=== PATIENT | male | born 1945 | race Caucasian/White ===

== ENCOUNTER 2018-02-12 12:25 | Emergency (ER) | payer MEDICARE, OTHER ==
[~2018-02-12] VITALS: Ht 180.3 cm; Wt 95.7 kg
[~2018-02-12 12:25] MED LIST: ALLOPURINOL300 MG PO; AMIODARONE HCL200 MG; ATORVASTATIN CA10 MG PO; HYDROCHLOROTHIA25 MG; NIASPAN500 MG; WARFARIN SODIUM5 MG
[2018-02-12 13:09] LABS: BASOPHILS % 0.2 % (0.0-1.0); EOSINOPHILS # (AUTO) 0.1 (0.0-0.4); EOSINOPHILS % 1.7 % (0.0-6.0); HEMATOCRIT 43.8 % (38.2-49.6); HEMOGLOBIN 14.8 g/dL (14.0-18.0); LYMPHOCYTES # (AUTO) 0.8 (1.0-3.2); LYMPHOCYTES % 9.6 % (18.0-39.1); MEAN CORPUSCULAR HEMOGLOBIN 32.2 pg (28-32); MEAN CORPUSCULAR HGB CONC 33.8 g/dL (31-35); MEAN CORPUSCULAR VOLUME 95.2 fL (81-99); MONOCYTES % 11.3 % (4.4-11.3); NEUTROPHILS # (AUTO) 6.5 (2.1-6.9); NEUTROPHILS % 76.8 % (38.7-80.0); PLATELET COUNT 116 x10e3/uL (140-360); RED CELL DISTRIBUTION WIDTH 12.5 % (11.7-14.4)
[2018-02-12 13:13] LABS: INR 1.21; PROTHROMBIN TIME 14.4 seconds (11.9-14.5)
[2018-02-12 13:14] LABS: PARTIAL THROMBOPLASTIN TIME 25.6 seconds (23.8-35.5)
[2018-02-12 13:22] LABS: ALANINE AMINOTRANSFERASE 38 IU/L (0-55); ALBUMIN 3.5 g/dL (3.5-5.0); ALBUMIN/GLOBULIN RATIO 1.1 (0.8-2.0); ALKALINE PHOSPHATASE 64 IU/L (40-150); ANION GAP 12.1 mmol/L (8-16); BLOOD UREA NITROGEN 25 mg/dL (7-26); BUN/CREATININE RATIO 23 (6-25); CALCIUM 9.4 mg/dL (8.4-10.2); CARBON DIOXIDE 27 mmol/L (22-29); CHLORIDE 102 mmol/L (98-107); EST GLOMERULAR FILTRATION RATE > 60 ML/MIN (60-); GLUCOSE 100 mg/dL (74-118); LIPASE 47 U/L (8-78); POTASSIUM 4.1 mmol/L (3.5-5.1); SODIUM 137 mmol/L (136-145)
--- NOTE | 2018-02-12 15:31 | Diagnostic Imaging Report ---
Exam: Abdominal film Clinical History: Blood in stool Comparison: None. DISCUSSION: Frontal view of the abdomen shows a nonobstructive bowel gas pattern with mild amount of retained stool.There are no dilated, air-filled loops of bowel. No calcifications project over the genitourinary tract. 2 somewhat cylindrical shaped radiopaque densities measuring approximately 1.5 cm project over the proximal and distal ascending colon. No acute bony abnormalities. Lung bases are clear. IMPRESSION: 1. Nonobstructive bowel gas pattern. 2. 2 somewhat cylindrical shaped radiopaque densities project over the ascending colon, which are indeterminate. These may represent foreign bodies or be external to the patient. The staff physician below has personally reviewed this exam on the date of dictation. Signed by: Dr. Gera Chowdhury M.D. on 02/12/2018 3:28 PM
[2018-02-12 16:07] VITALS: BP 140/85
== END 2018-02-12 16:12 | disposition home or self-care (01) ==
LOC: ER 12:43
DX: K62.5 Hemorrhage of anus and rectum (principal); Z79.01 Long term (current) use of anticoagulants
CPT/HCPCS: 36415; 80053; 83690; 85025; 85610; 85730; 86850; 86900; 99283

== ENCOUNTER → 2018-03-22 | Outpatient (CLI) | payer MEDICARE, OTHER ==
[~2018-03-22] MED LIST changes: +IOPAMIDOL 370 MG/ML 200 ML INFUS..BTL INJ ONE; +SODIUM CHLORIDE 0.9% 50ML 50 ML ONE
[2018-03-22 08:24] LABS: BLOOD UREA NITROGEN 25 mg/dL (7-26); BUN/CREATININE RATIO 24 (6-25); CREATININE, SERUM 1.04 mg/dL (0.72-1.25); EST GLOMERULAR FILTRATION RATE > 60 ML/MIN (60-)
--- NOTE | 2018-03-22 09:13 | Diagnostic Imaging Report ---
PROCEDURE:CTA ABDOMEN WITH CONTRAST COMPARISON:None. INDICATIONS:Abdominal aortic aneurysm TECHNIQUE: Multi-detector CT technology with Dose Reduction was employed. Images were obtained after the administration of 100 cc Isovue 370 intravenously. For optimization of anatomic evaluation, multiplanar and volume rendering reconstructions were performed. Advanced 3-D off-line postprocessing were performed on a dedicated stand-alone workstation under the direct supervision of the interpreting physician. DLP: 49.2 mGy-cm FINDINGS: Aortic Measurements at the level of the: Diaphragmatic hiatus: 2.5 cm Celiac axis: 2.3 cm Superior Mesenteric Artery: 2.1 cm Renal Arteries: 1.8 cm Above the iliac bifurcation: 2 cm Fusiform aneurysmal dilatation of the infrarenal abdominal aorta, beginning 2.1 cm distal to the lowest left renal artery origin. The aneurysm sac measures 4.7 cm oblique AP by 4.4 cm oblique transverse in maximum diameter as seen on series 3 image 97, and contains a small amount of concentric mural thrombus along with intimal calcifications. The JOSUE origin projects from the anterior aspect of the aneurysm as seen on series 3 image 101. The caudal extent of the aneurysm terminates approximately 1.7 cm above the bifurcation. Moderate atherosclerotic plaque elsewhere within the abdominal aorta and visceral branch vessels. The celiac axis is widely patent with conventional hepatic arterial anatomy. There is mild narrowing of the proximal SMA (series 3 image 67) secondary to noncalcified atherosclerotic plaque. There are 2 right and 2 left renal arteries. There is short segment moderate stenosis of the proximal aspect of the larger, more inferior right renal artery as seen on series 401, image 57, with poststenotic dilatation. Remaining renal artery origins are nonstenotic. Pelvic vessels: Right common iliac artery: Nonaneurysmal, measuring 0.9 cm. Mild calcified and noncalcified atherosclerotic plaque. Left common iliac artery: Non-aneurysmal, measuring 1.2 cm. Mild calcified and noncalcified atherosclerotic plaque. Abdominal and Pelvic soft-tissues and organs: Lung bases: Unremarkable. Liver: Subcentimeter hypoattenuating lesion in segment 2 and segment 5, too small to further characterize though likely to represent small cysts. Gallbladder is unremarkable. Biliary: No intra-or extrahepatic biliary ductal dilatation. Spleen: Heterogeneity of splenic attenuation reflects arterial phase of scan. Pancreas: No focal mass or ductal dilatation. Punctate calcification in the pancreatic tail. Adrenal Glands: Bilateral adrenal nodules measuring 2.1 cm on the right and 2.7 cm on the left. Average internal attenuation of each nodule is approximately 20 Hounsfield units. Kidneys: Subcentimeter hypoattenuating lesion in the lower pole of the left kidney is too small to further characterize though likely to represent a small cyst. Otherwise no focal renal lesion. No hydronephrosis. No calculi. GI: Visualized portions of the large bowel show no distention or wall thickening. Gas and fecal material is noted throughout. Colonic interposition of the hepatic flexure between the liver and diaphragm. The cecum lies in the left upper quadrant, likely due to redundancy. The duodenal sweep appears to lie in the expected anatomic configuration.. Peritoneum/Retroperitoneum: No ascites or pneumoperitoneum. Musculoskeletal: No focal soft tissue abnormalities. No osseous destructive lesions. Mild degenerative disc changes of the thoracic and lumbar spine. CONCLUSION: Fusiform infrarenal abnormal aortic aneurysm measuring 4.7 cm in maximum diameter as described above. Short segment moderate-severe stenosis of the proximal right main renal artery with poststenotic dilatation. 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 Definitive characterization with CT of the abdomen with and without contrast (adrenal mass protocol) is suggested. Dictated by: Jonas Whaley M.D. on 03/22/2018 at 9:21 Electronically approved by: Jonas Whaley M.D. on 03/22/2018 at 9:21
== END ==
LOC: CT 07:29
PROVIDERS: ATTEND Thoracic Surgery (Cardiothoracic Vascular Surgery)
DX: I71.4 Abdominal aortic aneurysm, without rupture (principal)
CPT/HCPCS: 36415; 74175; 82565; 84520; Q9967